=== PATIENT | female | born 1975 | race American Indian/Alaskan Native ===

== ENCOUNTER 2017-04-20 10:30 | Emergency (ER) | payer OTHER ==
[2017-04-20 11:09] VITALS: BP 116/48
[2017-04-20] MEDS ORDERED: MOTRIN PO ONE (11:36)
--- NOTE | 2017-04-20 11:36 | Emergency Department Report ---
Upper Extremity - HPI Chief Complaint: Extremity Injury, Upper Stated Complaint: FINGER INJURY Time Seen by Provider: 04/20/17 11:22 Upper Extremity: Right Little Finger (pain secondary to injury) Occurred When: 1 Day Mechanism: Other (reports she was lifting a heavy patient yesterday and in doing so her right finger got injured and bent) Severity: severe Symptoms: Yes Pain with Movement (right small finger), Yes Deformity, Yes Limited Range of Movement, Yes Swelling, Yes Bruising/Ecchymosis (small finger) , No Numbness, No Weakness, No Laceration or Abrasion Other History: Patient reports that she injured her right small finger yesterday when she was lifting heavy bends. She said her finger bent backwards and now she is having pain, increased swelling site pain is centered to 10 and throbbing. She says she took Motrin and she had some relief. Denies any numbness or tingling in to finger or hand. Denies any radiation of pain. ED Review of Systems ROS: Stated complaint: FINGER INJURY Other details as noted in HPI Comment: All other systems reviewed and negative Constitutional: no symptoms reported Cardiovascular: denies: chest pain, palpitations, dyspnea on exertion, edema, syncope, paroxysmal nocturnal dyspnea Gastrointestinal: denies: nausea, vomiting Musculoskeletal: joint swelling, arthralgia. denies: back pain, myalgia Skin: other (bruising to right small digit) Neurological: denies: headache, weakness, numbness, paresthesias, confusion, abnormal gait, other ED Past Medical Hx - Past Medical History Previous Medical History?: No - Surgical History Past Surgical History?: No - Family History Family history: no significant - Social History Smoking Status: Never Smoker Substance Use Type: None, Marijuana - Medications Home Medications: Home Medications Medication Instructions Recorded Confirmed Last Taken Type Acetaminophen/Codeine [Tylenol 1 tab PO Q8H PRN 4 Days #12 tab 04/20/17 Unknown Rx /Codeine # 3 tab] Ibuprofen [Motrin] 600 mg PO Q8H PRN 5 Days #15 tablet 04/20/17 Unknown Rx Upper Extremity Exam - Exam General: Vital signs noted. No distress. Alert and acting appropriately. This is a 41-year-old female well-nourished well-developed in no acute distress Head and Torso: No HEENT Abnormality, No Neck Tenderness, No Chest/Lungs Abnormality, No Abdominal Tenderness, No Back Tenderness Shoulder Exam: Yes Normal Range of Motion in Shoulder, No Shoulder Tenderness, No Clavicle Tenderness, No Shoulder Deformity, No AC Joint Tenderness Arm Exam: No Arm/Humerus Tenderness, No Arm Deformity Elbow: Yes Normal Range of Motion in Elbow, No Elbow Tenderness, No Elbow Deformity Forearm: No Forearm Tenderness, No Forearm Deformity, No Pain with Pronation, No Pain with Supination Wrist: Yes Normal ROM in Wrist, No Wrist Tenderness, No Wrist Deformity, No Snuffbox Tenderness, No Pain with Axial Thumb Compression Hand: Yes Digit Tenderness (right fifth digit .Distal phalanx), Yes Digit(s) Deformity (right fifth digit, Bony tenderness), No Hand Tenderness, No Hand Deformity, No Normal ROM in Digit(s) (with limited range of motion to the right fifth digit due to injury and pain), No Tendon Dysfunction CMS Exam: Yes Normal Distal Pulses, Yes Normal Capillary Refill, Yes Normal Distal Sensation, No Broken Skin ED Course Vital Signs 04/20/17 10:59 Temperature 98.4 F Pulse Rate 60 Respiratory 17 Rate Blood Pressure 116/48 O2 Sat by Pulse 97 Oximetry - Reevaluation(s) Reevaluation #1: 04/20/17 12:55 Patient was given Motrin 800 mg emergency room for pain to right fifth digit. She reports that her pain is better. - Orthopedic Splinting/Casting Injury #1 Side: right Upper Extremity Injury Location: finger Upper Extremity Immobilizer: aluminum form splint, finger (other) Additional Comments: Patient with good neurovascular check. ED Medical Decision Making - Radiology Data Radiology results: image reviewed interpreted by me: Patient with fracture to distal phalanx right fifth digit. This is preliminary reading . Final to be done by radiologist - Medical Decision Making D course: Patient is status post right fifth digit injury with fracture to distal phalanx. Patient here report pain and swelling to her rt fifth digit after lifting heavy objects yesterday. Physical findings for swelling and tenderness to palpate a distal phalanx. Patient with 2+ and bounding radial and ulnar pulse to bilateral upper extremity. She has limited range of motion to her right fifth digit due to pain. Patient given Motrin 800 mg when necessary emergency room which relieved her pain. Metal finger splint placed to Right fifth digit. Patient with intact neurovascular. I discussed with her she needs to rest, ice compress and elevate affected area for the next 72 hours and she needs to keep splint on and follow up with orthopedic doctor in 3-5 days Critical care attestation.: If time is entered above; I have spent that time in minutes in the direct care of this critically ill patient, excluding procedure time. ED Disposition Clinical Impression: Finger pain, right Fracture of finger, distal phalanx, right, closed Qualifiers: Encounter type: initial encounter Finger: little finger Fracture alignment: nondisplaced Qualified Code(s): S62.666A - Nondisplaced fracture of distal phalanx of right little finger, initial encounter for closed fracture Disposition: TO HOME OR SELFCARE Is pt being admited?: No Does the pt Need Aspirin: No Condition: Stable Instructions: Finger Fracture (ED), Arthralgia (ED), RICE Therapy (ED), Splint Care (ED) Additional Instructions: Please follow up with primary care as recommended Increase fluid intake Take medication as prescribed . please do not drive or operate heavy machinery while taking Tylenol No. 3 of this medication causes drowsiness. Referred to discharge instruction on splint care. Referred to discharge instruction in Rice therapy. follow-up with orthopedic doctor as instructed. Prescriptions: Acetaminophen/Codeine [Tylenol /Codeine # 3 tab] 1 tab PO Q8H PRN 4 Days #12 tab PRN Reason: Pain, Moderate (4-6) Ibuprofen [Motrin] 600 mg PO Q8H PRN 5 Days #15 tablet PRN Reason: Pain Referrals: ASHLEY VACA MD [Staff Physician] - 3-5 Days Forms: Work/School Release Form(ED)
--- NOTE | 2017-04-20 13:22 | XRay Report ---
XRAY RIGHT HAND THREE VIEWS: 04/20/17 10:30:00 CLINICAL: Trauma with pain in the fifth digit. FINDINGS: The bones and joints are normal. No fracture or dislocation. Normal soft tissues. IMPRESSION: Normal study.
== END 2017-04-20 13:19 | disposition home or self-care (01) ==
LOC: ED 10:30
DX: S62.666A Nondisplaced fracture of distal phalanx of right little finger, initial encounter for closed fracture (principal); F12.10 Cannabis abuse, uncomplicated; X50.0XXA Overexertion from strenuous movement or load, initial encounter; Y93.89 Activity, other specified; Y99.8 Other external cause status; Y92.89 Other specified places as the place of occurrence of the external cause

== ENCOUNTER 2018-01-25 15:49 | Emergency (ER) | payer SELFPAY ==
[2018-01-25] MEDS ORDERED: TYLENOL PO ONE (19:42)
[2018-01-25] MEDS ORDERED: TYLENOL ONE (19:43)
[2018-01-25 19:45] VITALS: BP 123/70
== END 2018-01-25 20:22 | disposition left against medical advice (07) ==
LOC: ED 15:49
DX: G43.909 Migraine, unspecified, not intractable, without status migrainosus (principal); Z53.21 Procedure and treatment not carried out due to patient leaving prior to being seen by health care provider

== ENCOUNTER 2018-01-27 07:54 | Emergency (ER) | payer MEDICAID ==
[2018-01-27 08:46] VITALS: BP 105/38
[2018-01-27] MEDS ORDERED: FIORICET PO ONE (09:58)
[2018-01-27] MEDS ORDERED: BENADRYL PO ONE (09:59)
[2018-01-27] MEDS ORDERED: REGLAN PO ONE (09:59)
[2018-01-27] MEDS ORDERED: SOLU-Medrol IM ONE (09:59)
[2018-01-27] MEDS ORDERED: TORADOL IM ONE (09:59)
--- NOTE | 2018-01-27 10:12 | Emergency Department Report ---
ED General Adult HPI - General Chief complaint: Abdominal Pain Stated complaint: HEADACHE, VOMITING,STOMACH PAIN Time Seen by Provider: 01/27/18 09:25 Source: patient Mode of arrival: Ambulatory Limitations: No Limitations - History of Present Illness Initial comments: Patient presents to the emergency department with a chief complaint of a migraine. Patient states she has a diffuse headache that she describes as throbbing in nature and consistent with migraine she's had in the past and is not the worst headache of her life. Patient also complains of abdominal pain secondary to a ventral hernia with mesh placement 2. Patient states the first surgery was in 2014 and second surgery was in 2015. States she began to have pain in the Saturday was consistent with the patient's Before secondary to the surgery. Patient denies any problems with her bowel or issues with nausea. Patient states she is here for pain control . -: Gradual Location: head, abdomen Radiation: non-radiation Severity scale (0 -10): 5 Quality: aching, other (throbbing) Improves with: none Worsens with: none Associated Symptoms: denies other symptoms Treatments Prior to Arrival: none - Related Data Previous Rx's Medication Instructions Recorded Last Taken Type Acetaminophen/Codeine [Tylenol 1 tab PO Q8H PRN 4 Days #12 tab 04/20/17 Unknown Rx /Codeine # 3 tab] Ibuprofen [Motrin] 600 mg PO Q8H PRN 5 Days #15 tablet 04/20/17 Unknown Rx Acetaminophen/Codeine [Tylenol 1 tab PO Q6H PRN #20 tab 01/27/18 Unknown Rx /Codeine # 3 tab] Allergies Allergy/AdvReac Type Severity Reaction Status Date / Time No Known Allergies Allergy Unverified 04/20/17 10:55 ED Review of Systems ROS: Stated complaint: HEADACHE, VOMITING,STOMACH PAIN Other details as noted in HPI Comment: All other systems reviewed and negative Constitutional: denies: chills, fever Eyes: denies: eye pain, eye discharge, vision change ENT: denies: ear pain, throat pain Respiratory: denies: cough, shortness of breath, wheezing Cardiovascular: denies: chest pain, palpitations Endocrine: no symptoms reported Gastrointestinal: denies: abdominal pain, nausea, diarrhea Genitourinary: denies: urgency, dysuria, discharge Musculoskeletal: denies: back pain, joint swelling, arthralgia Skin: denies: rash, lesions Neurological: denies: headache, weakness, paresthesias Psychiatric: denies: anxiety, depression Hematological/Lymphatic: denies: easy bleeding, easy bruising ED Past Medical Hx - Past Medical History Hx Headaches / Migraines: Yes - Surgical History Past Surgical History?: Yes Additional Surgical History: umbilical hernia surgeries - Social History Smoking Status: Former Smoker - Medications Home Medications: Home Medications Medication Instructions Recorded Confirmed Last Taken Type Acetaminophen/Codeine [Tylenol 1 tab PO Q8H PRN 4 Days #12 tab 04/20/17 Unknown Rx /Codeine # 3 tab] Ibuprofen [Motrin] 600 mg PO Q8H PRN 5 Days #15 tablet 04/20/17 Unknown Rx Acetaminophen/Codeine [Tylenol 1 tab PO Q6H PRN #20 tab 01/27/18 Unknown Rx /Codeine # 3 tab] ED Physical Exam - General Limitations: No Limitations General appearance: alert, in no apparent distress - Head Head exam: Present: atraumatic, normocephalic - Eye Eye exam: Present: normal appearance, PERRL, EOMI - ENT ENT exam: Present: mucous membranes moist - Neck Neck exam: Present: normal inspection - Respiratory Respiratory exam: Present: normal lung sounds bilaterally. Absent: respiratory distress, wheezes, rales - Cardiovascular Cardiovascular Exam: Present: regular rate, normal rhythm. Absent: systolic murmur, diastolic murmur, rubs, gallop - GI/Abdominal GI/Abdominal exam: Present: soft, normal bowel sounds. Absent: distended, tenderness - Extremities Exam Extremities exam: Present: normal inspection - Back Exam Back exam: Present: normal inspection - Neurological Exam Neurological exam: Present: alert, oriented X3, CN II-XII intact. Absent: motor sensory deficit - Psychiatric Psychiatric exam: Present: normal affect, normal mood - Skin Skin exam: Present: warm, dry, intact, normal color. Absent: rash ED Course Vital Signs 01/27/18 08:42 Temperature 97.2 F L Pulse Rate 51 L Respiratory 18 Rate Blood Pressure 105/38 O2 Sat by Pulse 95 Oximetry ED Medical Decision Making - Medical Decision Making Discussed plan of care with patient Critical care attestation.: If time is entered above; I have spent that time in minutes in the direct care of this critically ill patient, excluding procedure time. ED Disposition Clinical Impression: Headache, Abdominal pain Disposition: DC-01 TO HOME OR SELFCARE Is pt being admited?: No Does the pt Need Aspirin: No Condition: Stable Instructions: Abdominal Pain (ED), Acute Headache (ED) Additional Instructions: return if worse Prescriptions: Acetaminophen/Codeine [Tylenol /Codeine # 3 tab] 1 tab PO Q6H PRN #20 tab PRN Reason: pain Referrals: PRIMARY CARE, [Primary Care Provider] - 3-5 Days [facility] [Provider Group] - 3-5 Days Time of Disposition: 10:12
== END 2018-01-27 10:24 | disposition home or self-care (01) ==
LOC: ED 07:54
DX: G43.909 Migraine, unspecified, not intractable, without status migrainosus (principal); Z87.891 Personal history of nicotine dependence
CPT/HCPCS: 96372; 99282; J1885; J2930